=== PATIENT | male | born 1950 | race Caucasian/White ===

== ENCOUNTER 2018-04-14 07:09 | Outpatient (CLI) | payer OTHER | END 2018-04-14 07:19 | disposition home or self-care (01) | LOC: NUCLEAR 07:09 | DX: I87.2 Venous insufficiency (chronic) (peripheral) (principal) ==

== ENCOUNTER 2020-06-30 13:01 | Outpatient (CLI) | payer OTHER | END 2020-06-30 17:21 | disposition home or self-care (01) | LOC: OFIC 805 13:01 | PROVIDERS: ATTEND Otolaryngology Otology & Neurotology | DX: L50.8 Other urticaria (principal); H90.3 Sensorineural hearing loss, bilateral ==